=== PATIENT | female | born 1980 | race Two or more races ===

== ENCOUNTER 2017-02-02 10:45 | Emergency (ER) | payer OTHER ==
[2017-02-02 10:52] VITALS: TEMP 98.2; BMI 31.0
--- NOTE | 2017-02-02 10:56 | PDOC ---
History of Present Illness - General History Source: Patient Exam Limitations: No Limitations - History of Present Illness Initial Comments: 02/02/17 11:52 36 year old female who is 6 weeks A1, with no significant past medical history, who presents to the emergency room complaining of 1 week of intermittent vaginal bleeding that worsened today. The patient explains that she visited her OBGYN, Dr. Hayes, in the office when she experienced the bleeding 1 weeks ago. She was told that it may be normal, but if the bleeding worsens to come to the ER. Over the past week, she states that the bleeding stopped and she would only sometimes see blood on the toilet paper. However, today she noticed that there was blood all over her underwear when she was out running errands. Denies clots. Denies abdominal pain. Denies dysuria, hematuria, urinary frequency. Denies fever, chills, nausea, vomiting. Allergies: NKDA OBGYN: Dr. Breonna Hayes <Queta Elmore - Last Filed: 02/02/17 13:05> <Dara Suarez - Last Filed: 02/02/17 14:51> - General Chief Complaint: Vaginal Bleeding Stated Complaint: BLEEDING (6 WKS ) Time Seen by Provider: 02/02/17 10:56 Past History <Queta Elmore - Last Filed: 02/02/17 13:05> - Past Medical History Other medical history: NONE - Reproductive History Dysfunctional Uterine Bleeding: No - Suicide/Smoking/Psychosocial Hx Smoking History: Never smoked Hx Alcohol Use: No Drug/Substance Use Hx: No Substance Use Type: None <Dara Suarez - Last Filed: 02/02/17 14:51> - Past Medical History Allergies/Adverse Reactions: Allergies Allergy/AdvReac Type Severity Reaction Status Date / Time No Known Allergies Allergy Verified 02/02/17 10:52 Home Medications: Ambulatory Orders NK [No Known Home Medication] 03/16/16 Review of Systems - Review of Systems Able to Perform ROS?: Yes Comments:: 02/02/17 11:52 GENERAL/CONSTITUTIONAL: No fever or chills. No weakness. HEAD, EYES, EARS, NOSE AND THROAT: No change in vision. No ear pain or discharge. No sore throat. GASTROINTESTINAL: No nausea, vomiting, diarrhea or constipation. GENITOURINARY: +vaginal bleeding. No dysuria, frequency, or change in urination. CARDIOVASCULAR: No chest pain or shortness of breath. RESPIRATORY: No cough, wheezing, or hemoptysis. MUSCULOSKELETAL: No joint or muscle swelling or pain. No neck or back pain. SKIN: No rash NEUROLOGIC: No headache, vertigo, loss of consciousness, or change in strength/ sensation. ENDOCRINE: No increased thirst. No abnormal weight change. HEMATOLOGIC/LYMPHATIC: No anemia, easy bleeding, or history of blood clots. ALLERGIC/IMMUNOLOGIC: No hives or skin allergy. <Queta Elmore - Last Filed: 02/02/17 13:05> *Physical Exam - Vital Signs Last Vital Signs Temp Pulse Resp BP Pulse Ox 98.2 F 77 20 123/70 100 02/02/17 10:50 02/02/17 10:50 02/02/17 10:50 02/02/17 10:50 02/02/17 10:50 - Physical Exam Comments: 02/02/17 11:52 Constitutional: Awake, alert, oriented. No acute distress. Head: Normocephalic. Atraumatic Eyes: PERRL. EOMI. Conjunctivae are not pale. Cardiovascular: Regular rate. Regular rhythm. S1, S2 regular. Distal pulses are 2+ and symmetric. Abdominal: +suprapubic tenderness to palpation. Soft and non-distended. No rebound, guarding or rigidity. No organomegaly. No palpable masses. Good bowel sounds. Pelvic: No active bleeding. +Mild bilateral adnexal tenderness. +cervical motion tenderness. Cervix is closed. There is some brown tinged discharge. Back: No CVA tenderness. Skin: Skin is warm and dry. No petechiae. No purpura. Neurological: Alert and oriented to person, place, and time. Cranial nerves II -XII are grossly intact. Normal speech. Strength is grossly symmetric. No sensory deficits. <Queta Elmore - Last Filed: 02/02/17 13:05> - Vital Signs Last Vital Signs Temp Pulse Resp BP Pulse Ox 98.2 F 77 20 123/70 100 02/02/17 10:50 02/02/17 10:50 02/02/17 10:50 02/02/17 10:50 02/02/17 10:50 <Dara Suarez - Last Filed: 02/02/17 14:51> ED Treatment Course - LABORATORY CBC & Chemistry Diagram: 02/02/17 11:24 02/02/17 11:24 <Queta Elmore - Last Filed: 02/02/17 13:05> - LABORATORY CBC & Chemistry Diagram: 02/02/17 11:24 02/02/17 11:24 <Dara Suarez - Last Filed: 02/02/17 14:51> Medical Decision Making - Medical Decision Making 02/02/17 11:46 a/p: 36yo female at 6 weeks with vaginal bleeding intermittent x 1 week -pelvic ultrasound -labs -beta -ua -type and screen -poss threatened ab vs bleeding in first trimester vs ectopic given adnexal ttp on exam -gc/chl cultures sent 02/02/17 14:49 discussed all lab and imaging results. Pt stable for d/c to home. 02/02/17 14:50 discussed ultrasound results with the patient. went over beta hcg repeat labs in 48 hours. Discussed no heavy lifting, discussed hemorrhagic cyst and subchorionic hemorrhage. Gave copy of ultrasound report. Recommended pt start taking vitamins. Stable for d/c to home. ANswered all questions. <Dara Suarez - Last Filed: 02/02/17 14:51> *DC/Admit/Observation/Transfer - Attestations Scribe Attestion: 02/02/17 11:52 Documentation prepared by DUNIA Cruz, acting as medical chemist for Dara Suarez DO. <Queta Elmore - Last Filed: 02/02/17 13:05> - Discharge Dispostion Admit: No - Attestations Physician Attestion: 02/02/17 14:49 I, Dr. Dara Suarez DO, attest that this document has been prepared under my direction and personally reviewed by me in its entirety. I further attest, that it accurately reflects all work, treatment, procedures and medical decision -making performed by me. <Dara Suarez - Last Filed: 02/02/17 14:51> Diagnosis at time of Disposition: Threatened , Hemorrhagic cyst of ovary, Subchorionic hematoma in first trimester - Referrals Referrals: Kizzy Dempsey MD [Staff Physician] - - Patient Instructions Printed Discharge Instructions: DI for Threatened , DI for Ovarian Cyst Additional Instructions: Please return to the ED or the clinic for a repeat beta HCG in 48 hours. Please take vitamins. Please return to the ED with any further concerns. Please follow up with the CREDIT SPECIALIST. Please do not put anything in the vagina or lift anything heavy.
[2017-02-02 11:44] LABS: BASOPHIL 0.8 % (0-2.0); MCH 31.5 pg (25.7-33.7); MCHC 33.6 g/dl (32.0-36.0); MEAN CELL VOLUME 93.8 fl (80-96); MEAN PLT VOLUME 7.6 fl (7.5-11.1); NEUTROPHILS 56.4 % (42.8-82.8); PLATELET COUNT 233 K/MM3 (134-434); RDW 13.3 % (11.6-15.6); WHITE BLOOD COUNT 8.9 K/mm3 (4.0-10.0)
[2017-02-02 12:03] LABS: INR 0.96 (0.82-1.09); PROTHROMBIN TIME (PATIENT) 10.9 SEC (9.98-11.88)
[2017-02-02 12:05] LABS: ACTIVATED PTT 31.3 SECONDS (26.9-34.4)
[2017-02-02 12:09] LABS: URINE APPEARANCE CLEAR; URINE BILIRUBIN NEGATIVE (NEGATIVE); URINE BLOOD 1+ (NEGATIVE); URINE COLOR LTYELLOW; URINE GLUCOSE (UA) NEGATIVE (NEGATIVE); URINE KETONE NEGATIVE (NEGATIVE); URINE NITRITE NEGATIVE (NEGATIVE); URINE PROTEIN NEGATIVE (NEGATIVE); URINE UROBILINOGEN NEGATIVE mg/dL (0.2-1.0)
[2017-02-02 12:25] LABS: ALBUMIN 3.6 g/dl (3.4-5.0); ANION GAP 10 (8-16); BILIRUBIN,TOTAL 0.5 mg/dL (0.2-1.0); CALCIUM 8.7 mg/dL (8.5-10.1); CO2 23 mmol/L (21-32); CREATININE 0.6 mg/dL (0.55-1.02); GLUCOSE,RANDOM 83 mg/dL (74-106); SGOT/AST 12 U/L (15-37); SGPT/ALT 22 U/L (12-78); TOT PROT 6.8 g/dl (6.4-8.2)
[2017-02-02 12:27] LABS: ALK PHOS 57 U/L (45-117)
[2017-02-02 12:46] LABS: URINE MUCUS RARE; URINE RBC 2 /hpf (0-3)
[2017-02-02 13:21] VITALS: BP 116/68; PULSE 68
[2017-02-02 17:15] LABS: URINE LEUK ESTERASE Negative (NEGATIVE)
== END 2017-02-02 14:56 | disposition home or self-care (01) ==
LOC: JER 10:45
DX: O26.891 Other specified pregnancy related conditions, first trimester (principal); O20.0 Threatened abortion; Z3A.01 Less than 8 weeks gestation of pregnancy; N83.209 Unspecified ovarian cyst, unspecified side; O71.89 Other specified obstetric trauma
CPT/HCPCS: 36415; 76817-TC; 80053; 81003; 81015; 84702; 85025; 85610; 85730; 86850; 86900; 86901; 87491; 87591; 99283-25

== ENCOUNTER 2017-02-04 07:15 | Emergency (ER) | payer OTHER ==
[2017-02-04 07:36] VITALS: BP 110/69; PULSE 63; TEMP 98.2; BMI 31.0
--- NOTE | 2017-02-04 08:18 | PDOC ---
History of Present Illness - General Chief Complaint: Revisit, Lab Variance Stated Complaint: REVISIT (6 WEEKS ) Time Seen by Provider: 02/04/17 08:17 History Source: Patient Exam Limitations: No Limitations - History of Present Illness Initial Comments: 02/04/17 08:22 My Chief Complaint: here for repeat Beta HCG History of Present Illness: Pt. is a 36 year old female who is 6 weeks 5 days A1, with no significant past medical history, who presents to the emergency room complaining of 1 week of intermittent vaginal bleeding that worsened today on 02/02/17. The patient explains that she visited her OBGYN, Dr. Hayes, in the office when she experienced the bleeding 1 1/2 weeks ago. Over the past week and 2 days, she states that the bleeding stopped and she has on- ly brownish discharge on toilet paper.She has minimal lower mid pelvic to rt. sided discomfort. She denies any fever. Beta HCG 02/02/17 13864.9. Pt.'s LMP was 12/15/16, pt. is followed by Dr. Hayes douper. 02/04/17 08:54 02/04/17 09:02 02/04/17 09:35 Timing/Duration: other (lessening vaginal bleeding ) Severity: mild Associated Symptoms: reports: other (minimal pelvic mid to rt. sided pain ) Past History - Past Medical History Allergies/Adverse Reactions: Allergies Allergy/AdvReac Type Severity Reaction Status Date / Time No Known Allergies Allergy Verified 02/04/17 08:14 Home Medications: Ambulatory Orders NK [No Known Home Medication] 03/16/16 Other medical history: denies - Reproductive History (#): 4 Para: 2 Dysfunctional Uterine Bleeding: No Spontaneous : 1 - Suicide/Smoking/Psychosocial Hx Smoking History: Never smoked Have you smoked in the past 12 months: No Information on smoking cessation initiated: No Hx Alcohol Use: No Drug/Substance Use Hx: No Substance Use Type: None Review of Systems - Review of Systems Able to Perform ROS?: Yes Constitutional: No: Symptoms Reported HEENTM: No: Symptoms Reported Respiratory: No: Symptoms reported Cardiac (ROS): No: Symptoms Reported ABD/GI: Yes: Other (minimal mid pelvic to rt. sided discomfort) : Yes: Other (minimal brownish discharge when wiping only ) Musculoskeletal: No: Symptoms Reported Integumentary: No: Symptoms Reported Neurological: No: Symptoms reported *Physical Exam - Vital Signs Last Vital Signs Temp Pulse Resp BP Pulse Ox 98.2 F 63 16 110/69 100 02/04/17 07:31 02/04/17 07:31 02/04/17 07:31 02/04/17 07:31 02/04/17 07:31 - Physical Exam General Appearance: Yes: Appropriately Dressed Respiratory/Chest: positive: Lungs Clear, Normal Breath Sounds. negative: Chest Tender, Respiratory Distress Cardiovascular: positive: Regular Rhythm, Regular Rate, S1, S2 Gastrointestinal/Abdominal: positive: Normal Bowel Sounds, Soft, Tenderness ( minimal pelvic to rt. sided tenderness). negative: Tender, Organomegaly, Distended, Guarding, Rebound, Hepatomegaly, Spleenomegaly Integumentary: positive: Normal Color Neurologic: positive: Alert, Normal Response, Responsive Medical Decision Making - Medical Decision Making 02/04/17 09:00 Pt. is a 36 year old female who is 6 weeks 5 days A1, with no significant past medical history, who presents to the emergency room complaining of 1 week of intermittent vaginal bleeding that worsened today on . The patient explains that she visited her OBGYN, Dr. Hayes, in the office when she experienced the bleeding 1 1/2 weeks ago. Over the past week and 2 days, she states that the bleeding stopped and she has on- ly brownish discharge on toilet paper.She has minimal lower mid pelvic to rt. sided discomfort. She denies any fever. vaginal bleeding in here for Beta HCG PLAN: beta HCG 02/04/17 09:44 02/04/17 09:45 Laboratory Tests 02/04/17 08:30 Beta HCG, Quant 69003.5 follow up with ESCALATOR SERVICE MECHANIC as soon as possible no lifting or strenuous actigvities no sexual intercourse until cleared by your framer *DC/Admit/Observation/Transfer Diagnosis at time of Disposition: Threatened in early - Discharge Dispostion Disposition: HOME Condition at time of disposition: Stable - Patient Instructions Additional Instructions: No Lifting or strenuous activities or exercise No sexual relations until cleared by ESCALATOR SERVICE MECHANIC to resume activities Follow up with your yard attendant data center solutions architect next week for further evaluation Return to emergency room if vaginal bleeding reoccurs or any other symptoms develop copy your recent lab work from today given to you, to give to your ESCALATOR SERVICE MECHANIC doctor Patient voiced understanding of discharge instructions and all questions were answered
== END 2017-02-04 10:01 | disposition home or self-care (01) ==
LOC: JER 07:15 → JERFT 07:15
DX: O20.0 Threatened abortion (principal); Z3A.01 Less than 8 weeks gestation of pregnancy
CPT/HCPCS: 36415; 84702; 99281-25

== ENCOUNTER 2017-09-27 16:35 | Inpatient (IN) | payer OTHER ==
[2017-09-27] MEDS ORDERED: DEXTROSE 5%-LACTATED RINGERS 1,000 ML IV SCH ×2 (18:15→19:00)
[2017-09-27 18:24] VITALS: BMI 38.7
[2017-09-27] MEDS ORDERED: BUTORPHANOL TARTRATE 1 MG/ML VIAL IVPB ONE (19:00)
[2017-09-27] MEDS ORDERED: PROMETHAZINE HCL 25 MG/1 ML VIAL IVPUSH ONE (19:00)
--- NOTE | 2017-09-27 19:07 | HP ---
Past Medical History - Primary Care Physician PCP:: Carmita Garcia - Admission Chief Complaint: 36 yrs , 40.2 weeks by sono, 40.6/7 weeks by dated admitted due to SROM & Onset LP since 4.30 PM 09/27/17 History of Present Illness: PNC at 2, park care at 2, park care. wt gain 43 lbs panel 02/25/17 : O pos, Rpr nr, Hiv neg, Hbsag ne, Rubella iimmune, Pap gc/ct neg , Sickle neg 06/24/17 1 hr GTt 125, Rpr nr, Quantiferon TNP 08/24/17 h/h9.5/30.2, plt 353, GBS neg, gc/ct neg Pt states she was seen by [facility], she had testing done for DS , it was neg . presently sono from [facility] office not available 02/14/2017 8.1 wks , subchorionic bleeding 09/25/17 sono 39.3 wks BPP 8/8, dave 9.0 cm/cephalic History Source: Patient, Medical Record Limitations to Obtaining History: No Limitations - Past Medical History AUTO BODY STRAIGHTENER: No: Migraine, Seizure Cardiovascular: No: HTN, Murmur Pulmonary: No: Asthma Gastrointestinal: Yes: Constipation Renal/: No: UTI ...: 4 ...Para: 2 ( 12/24/1996 6'5" ([facility]), 1999 6'5' ( [facility]} ) ...Term: 2 ...: 0 ...Spon : 1 (2006 ) ...Induced : 0 ...Multiple Gestation: 0 ...LMP: 12/15/16 ... 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 No: AIDS, HIV, STD's Psych: No: Addictions, Anxiety, Bipolar, Psychosis - Past Surgical History Past Surgical History: Yes: Appendectomy (2008) Hx Myomectomy: No Hx Transabdominal Cerclage: No - Smoking History Smoking history: Never smoked Have you smoked in the past 12 months: No - Alcohol/Substance Use Hx Alcohol Use: No History of Substance Use: reports: None Home Medications - Allergies Allergies/Adverse Reactions: Allergies Allergy/AdvReac Type Severity Reaction Status Date / Time No Known Allergies Allergy Verified 09/27/17 18:02 - Home Medications Home Medications: Ambulatory Orders NK [No Known Home Medication] 03/16/16 Physical Exam - Maternity Vital Signs: Vital Signs Temperature 98.2 F 09/27/17 18:00 Pulse Rate 92 H 09/27/17 18:00 Respiratory Rate 18 09/27/17 18:00 Blood Pressure 114/73 09/27/17 18:00 O2 Sat by Pulse Oximetry (%) Constitutional: Yes: Well Nourished Eyes: Yes: WNL HENT: Yes: WNL Neck: Yes: WNL Cardiovascular: Yes: WNL, Regular Rate and Rhythm Lungs: Clear to auscultation Breast(s): Yes: WNL - Abdominal Exam/OB Fundal Height: 40 Number of Fetuses: Single Presentation: Vertex Contractions: Yes Regularity: Irregular (1-5 min) Intensity: Moderate Monitor Mode: External Heart Rate (range): 150 Heart Rate [facility] Category: I Accelerations: Uniform Decelerations: Variable (mild variable sometimes) - Vaginal Exam/OB Vaginal Bleediing: No Speculum Exam: No Dilatation (cm): 1-2 Effacement (%): 60 Amniotic Membrane Status: Ruptured Nitrazine Test: Positive Amniotic Fluid: Yes: Clear Presentation: Vertex/Position Station: -3 - Physical Exam Musculoskeletal: Yes: WNL Extremities: Yes: WNL. No: Calf Tenderness Edema: Yes (hands & abd wall ) Edema: LLE: 1+, RLE: 1+ Integumentary: Yes: WNL, Incision (appendectomy scar) Deep Tendon Reflex Grade: Normal +2 ...Motor Strength: WNL Psychiatric: Yes: WNL, Alert, Oriented - Labs Lab Results: Laboratory Tests 09/27/17 09/27/17 09/27/17 19:00 19:00 19:00 WBC 14.8 H D Hgb 9.4 L D Hct 30.0 L D MCV 80.1 Plt Count 318 Neutrophils % 74.0 D Lymphocytes % 16.4 D PT with INR 10.50 INR 0.93 PTT (Actin FS) 26.6 Sodium 136 Potassium 4.0 Chloride 105 Carbon Dioxide 22 BUN 5 L Creatinine 0.7 Random Glucose 92 Calcium 8.1 L Problem List - Problems (1) Post term over 40 weeks Code(s): O48.0 - POST-TERM (2) SROM (spontaneous rupture of membranes) Code(s): ZCY9914 - (3) Labor established Code(s): JLN8764 - (4) Obesity (BMI 35.0-39.9 without comorbidity) Code(s): E66.9 - OBESITY, UNSPECIFIED (5) Anemia affecting in third trimester Code(s): O99.013 - ANEMIA COMPLICATING , THIRD TRIMESTER (6) AMA (advanced maternal age) multigravida 35+ Code(s): O09.529 - SUPERVISION OF ELDERLY MULTIGRAVIDA, UNSPECIFIED TRIMESTER Assessment/Plan 36 yrs , 40.2 weeks srom , in labor early , gbs neg Plan , Vaginal delivery trial pitocin augmentation prn stadol + phenrgan prn
[2017-09-27 19:36] LABS: EOS % 0.4 % (0-4.5); HEMOGLOBIN 9.4 GM/dL (10.7-15.3); LYMPH % 16.4 % (8-40); MCH 25.1 pg (25.7-33.7); MCHC 31.4 g/dl (32.0-36.0); MEAN CELL VOLUME 80.1 fl (80-96); MEAN PLT VOLUME 8.8 fl (7.5-11.1); MONO % 8.2 % (3.8-10.2); PLATELET COUNT 318 K/MM3 (134-434); RBC 3.75 M/mm3 (3.60-5.2); RDW 17.7 % (11.6-15.6); WHITE BLOOD COUNT 14.8 K/mm3 (4.0-10.0)
[2017-09-27 19:51] LABS: INR 0.93 (0.82-1.09); PROTHROMBIN TIME (PATIENT) 10.5 SEC (9.7-13.0)
[2017-09-27 19:54] LABS: ACTIVATED PTT 26.6 SECONDS (25.2-36.5)
[2017-09-27 20:26] LABS: ANION GAP 9 (8-16); BLOOD UREA NITROGEN 5 mg/dL (7-18); CALCIUM 8.1 mg/dL (8.5-10.1); CHLORIDE 105 mmol/L (98-107); CO2 22 mmol/L (21-32); CREATININE 0.7 mg/dL (0.55-1.02); GLUCOSE,RANDOM 92 mg/dL (74-106); SODIUM 136 mmol/L (136-145)
[2017-09-27] MEDS ORDERED: PROMETHAZINE HCL 25 MG/1 ML VIAL ONE (21:35)
[2017-09-27] MEDS ORDERED: BUTORPHANOL TARTRATE 1 MG/ML VIAL ONE ×2 (21:35)
[2017-09-27] MEDS ORDERED: OXYTOCIN 30 UNITS in 0.9% NS 30 UNIT/500 ML INFUS.BAG IVPB ONE (22:54)
[2017-09-27] MEDS ORDERED: OXYTOCIN 20 UNITS in 0.9% NS 20 UNIT/1,000 ML INFUS.BAG IV ONE (22:54)
--- NOTE | 2017-09-27 23:10 | PN ---
Progress Note, Labor Vaginal Exam #1 Labor Exam Date: 09/27/17 Labor Exam Time: 22:45 Heart Rate (range): 150 Dilatation: 6 Effacement (%): 90 Amniotic Membrane Status: Ruptured Presentation: Vertex/Position Station: -1 Remarks: fhr cat-1 low btb variablity due to stadol + phenrgan uc 2-4 min dysfunctional , mild stadol + phenrgan given at 21.45 [address] augmentation [address] trial of labor Selected Entries 09/27/17 23:00 Temperature 98.9 F Pulse Rate 84 Blood Pressure 135/74 Vaginal Exam #2 Labor Exam Date: 09/28/17 Labor Exam Time: 00:30 Heart Rate (range): 150 Dilatation: 9 Effacement (%): 100 Amniotic Membrane Status: Ruptured Presentation: Vertex/Position Station: +1 (caput to 2+) Remarks: fhr cat-1 uc 2-3 min Selected Entries 09/28/17 00:00 Temperature 98.7 F Pulse Rate 97 H Blood Pressure 134/53 Vaginal Exam #3 Labor Exam Date: 09/28/17 Labor Exam Time: 01:15 Heart Rate (range): 155 Dilatation: 10 cm Effacement (%): 100 Amniotic Membrane Status: Ruptured Station: +2 (caput large) Remarks: fhr cat-1 uc q 2min pit stopped at 1.30 am pt encouraged to push , fhr down to 120-110 during pushing Selected Entries 09/28/17 01:07 Temperature 98.9 F Pulse Rate 100 H Blood Pressure 128/66
[2017-09-27] MEDS ORDERED: OXYTOCIN 30 UNITS in 0.9% NS 30 UNIT/500 ML INFUS.BAG IVPB SCH (23:45)
[2017-09-28] MEDS: OXYTOCIN 20 UNITS in 0.9% NS 20 UNIT/1,000 ML INFUS.BAG IV SCH (02:10)
[2017-09-28] MEDS ORDERED: METHYLERGONOVINE MALEATE 0.2 MG/1 ML AMP IM PRN (02:14)
[2017-09-28] MEDS ORDERED: CARBOPROST TROMETHAMINE 250 MCG/ML AMPUL IM ONE (02:25)
[2017-09-28] MEDS ORDERED: ceFAZolin 2 GRAM PREMIX BAG IVPB ONE (02:26)
[2017-09-28] MEDS ORDERED: ceFAZolin SODIUM 1 GM VIAL ONE (02:31)
[2017-09-28] MEDS ORDERED: ACETAMINOPHEN INJECTION 100 ML IVPB ONE (02:35)
[2017-09-28 02:39] LABS: VENOUS PC02 45.1 mmHg (38-52); VENOUS PO2 35.3 mmHg (28-48)
[2017-09-28 02:41] LABS: VENOUS PH 7.13 (7.32-7.42)
[2017-09-28 02:42] LABS: ARTERIAL BLD GAS O2 SATURATION 32.5 % (90-98.9); ARTERIAL BLOOD GAS BASE EXCESS -17.5 meq/l (-2-2); ARTERIAL BLOOD GAS PCO2 60.3 mmHg (35-45); ARTERIAL BLOOD GAS PO2 24.9 mmHg (80-100); ARTERIAL BLOOD GAS pH 7.03 (7.35-7.45)
[2017-09-28] MEDS ORDERED: BENZOCAINE 28 GM HEMORRHOIDAL OINTMENT TP PRN (02:59)
[2017-09-28] MEDS ORDERED: BISACODYL 10 MG SUPP.RECT RC PRN (02:59)
[2017-09-28] MEDS ORDERED: BENZOCAINE 20% 57 GM BOTTLE TP PRN (02:59)
[2017-09-28] MEDS ORDERED: oxyCODONE HCL 5 MG TABLET PO PRN (02:59)
[2017-09-28] MEDS ORDERED: WITCH HAZEL 50% (TUCKS) 40 PAD/JAR PAD TP PRN (02:59)
[2017-09-28] MEDS ORDERED: ACETAMINOPHEN 1000 MG/100 ML VIAL (NON FORMULARY) IVPB ONE (03:00)
--- NOTE | 2017-09-28 03:18 | PN ---
Delivery - Delivery Vaginal Delivery: No Problems, Spontaneous (baby delievered vx presentation, minerva position, , girl, immediate oral & nasal suction done at perineum before the delivery of shoulder , delivery of body followed by moderate to thick meconium fluid large amount . perineum 1 st degree laceration sutured with Chr catgut #2/0 under local anesthesia . Placenta delievery accompanoed by large amount of bleeding.Atonic uterus wwas noted Bimanual massage given, IV pitocin continued, IM Methergine given at 2.14 AM.Bladder catheterized 50 ml urine IM Hemabate given at 2.25 AM , Anthony catheter inserted at 2.26 AM . Prophylactic 2 gm iVPB Ancef given at 2.35 AM. 3.00AM IVPB Tylenol 1 gm given . periodic, evacuation of blood clots from uterus done , bimanual massage continued until uterus remained firm) Type of Anesthesia: Local Episiotomy/Laceration: Perineal Extension/lac, 1st degree EBL (cc): 700 Delivery, Single - Stages of Labor Date 1st Stage Initiatied: 09/27/17 Time 1st Stage Initiated: 16:30 Date 2nd Stage Initiated: 09/28/17 Time 2nd Stage Initiated: 01:15 Date of Delivery: 09/28/17 Time of Delivery: 02:04 Time Placenta Delivered: 02:10 Placenta: Yes: Spontaneous, Uterine Exploration - Condition of Direct Care Specialist/Net Web Application Developer Present: No Infant Gender: Female Weight: 8 lb 4 oz Position: Left, OA Total Hours ROM (Hrs/Mins): 8h 40m - 1 Minute Total Score: 8 5 Minutes Total Score: 8 - [place] Feeding Plan Initial Plan: Elected not to breastfeed exclusively throughout hospitalization Remarks - Remarks Remarks: 36 yrs ( AMA) , , 40.2 weeks , gbs neg, admitted in labor, srom pnc at [address] [place] [address] Iv stadol 2 mg + phenrgan 25 mg iv given once for labor analgesia . cord PH results notified to nursery to inform mixer wet pour 300 AM BP 123/56, , pulse 93 ut firm , bleeding mild to moderate now
[2017-09-28] MEDS ORDERED: OXYTOCIN 20 UNITS in 0.9% NS 20 UNIT/1,000 ML INFUS.BAG IV ONE (04:15)
[2017-09-28] MEDS: ACETAMINOPHEN 325 MG TABLET (FP) PO PRN ×3 (07:44→21:05)
[2017-09-28] MEDS: FERROUS SO4 325 MG TABLET (FP) PO SCH ×2 (07:44→16:31)
[2017-09-28 08:28] LABS: BASO % 0.1 % (0-2.0); HEMATOCRIT 21.9 % (32.4-45.2); LYMPH % 7.3 % (8-40); MCH 24.6 pg (25.7-33.7); MEAN CELL VOLUME 79.4 fl (80-96); MEAN PLT VOLUME 8.8 fl (7.5-11.1); MONO % 6.1 % (3.8-10.2); NEUT % 86.5 % (42.8-82.8); PLATELET COUNT 248 K/MM3 (134-434); RBC 2.76 M/mm3 (3.60-5.2); RDW 17.5 % (11.6-15.6); WHITE BLOOD COUNT 26.1 K/mm3 (4.0-10.0)
--- NOTE | 2017-09-28 08:31 | PN ---
Progress Note (short form) - Note Progress Note: ppd #0 pt does not c/o excessive bleeding c/o cramps c/o fatigue . Not OOB yet does not c/o dizziness now ryder in situ draining , urine out put 200 ml + in ryder bag, concentrated ut firm below umblicus vag bleeding moderate perineum intact s/p 1st degree laceration Selected Entries 09/28/17 04:30 Temperature 98.7 F Pulse Rate 81 Blood Pressure 109/49 Blood Pressure 69 Mean Imp s/p Atonic PPH stable today AM cbc pending Laboratory Tests 09/28/17 07:40 WBC 26.1 H D RBC 2.76 L D Hgb 6.8 L* D Hct 21.9 L D MCV 79.4 L MCH 24.6 L MCHC 31.0 L RDW 17.5 H Plt Count 248 D MPV 8.8 Absolute Neuts (auto) 22.5 Neutrophils % 86.5 H Lymphocytes % 7.3 L D 10.00 AM I discussed the low count with patient she is informed r/b/a ,not ltd to reaction, chills etc , alt if transfusion not taken dizziness, blackouts, fainting spells ,sob, headache etc symptoms may be experienced, she will have to take po Ialong with high iron & high protein diet facundo & Pnv sincerely Problem List - Problems (1) Post term over 40 weeks Code(s): O48.0 - POST-TERM (2) SROM (spontaneous rupture of membranes) Code(s): JFV1770 - (3) Labor established Code(s): DQQ1044 - (4) Obesity (BMI 35.0-39.9 without comorbidity) Code(s): E66.9 - OBESITY, UNSPECIFIED (5) Anemia affecting in third trimester Code(s): O99.013 - ANEMIA COMPLICATING , THIRD TRIMESTER (6) AMA (advanced maternal age) multigravida 35+ Code(s): O09.529 - SUPERVISION OF ELDERLY MULTIGRAVIDA, UNSPECIFIED TRIMESTER
[2017-09-28 08:32] LABS: HEMOGLOBIN 6.8 GM/dL (10.7-15.3)
[2017-09-28] MEDS: PRENATAL VITAMINS W/ FOLIC ACID TABLET (FP) PO SCH (09:52)
[2017-09-28] MEDS ORDERED: DIPHTH,PERTUSS(ACELL),TET 0.5 ML DISP.SYRIN IM ONE (10:00)
[2017-09-28 14:10] LABS: ANISOCYTOSIS 1+; PLATELET ESTIMATE ADEQUATE
[2017-09-28] MEDS: IBUPROFEN 600 MG TABLET (FP) PO PRN ×2 (16:32→21:05)
[2017-09-29] MEDS: FERROUS SO4 325 MG TABLET (FP) PO SCH ×2 (07:23→18:18)
[2017-09-29] MEDS: ACETAMINOPHEN 325 MG TABLET (FP) PO PRN (07:23)
[2017-09-29] MEDS: IBUPROFEN 600 MG TABLET (FP) PO PRN (07:24)
[2017-09-29 08:48] LABS: HEMATOCRIT 25.1 % (32.4-45.2); HEMOGLOBIN 8.2 GM/dL (10.7-15.3); MCH 26.8 pg (25.7-33.7); MCHC 32.6 g/dl (32.0-36.0); MEAN CELL VOLUME 82.3 fl (80-96); RBC 3.05 M/mm3 (3.60-5.2); RDW 17.2 % (11.6-15.6); WHITE BLOOD COUNT 16.6 K/mm3 (4.0-10.0)
[2017-09-29 08:49] LABS: BASO % 0.3 % (0-2.0); LYMPH % 19.7 % (8-40); MEAN PLT VOLUME 8.5 fl (7.5-11.1); MONO % 6.1 % (3.8-10.2); NEUT % 72.9 % (42.8-82.8); PLATELET COUNT 220 K/MM3 (134-434)
[2017-09-29] MEDS: PRENATAL VITAMINS W/ FOLIC ACID TABLET (FP) PO SCH (10:11)
--- NOTE | 2017-09-29 11:43 | PN ---
Post Progress Note - Subjective Subjective: 36 yo Para 3 status post vaginal delivery, seen and evaluated. Doing well after blood transfusion. Post Day: 1 Type of Delivery: Vital Signs: Vital Signs Temperature 97.7 F 09/29/17 09:15 Pulse Rate 70 09/29/17 09:15 Respiratory Rate 20 09/29/17 09:15 Blood Pressure 115/64 09/29/17 09:15 O2 Sat by Pulse Oximetry (%) 97 09/28/17 04:00 Breast Exam: Yes: Soft Uterus: Yes: Fundus Firm Abdomen/GI: Yes: Abdomen soft, Tolerating PO Lochia: Yes: Rubra Lochia, amount: Moderate Extremities: Yes: Calves non-tender Activity: Ambulating - Labs Labs: CBC WBC 16.6 K/mm3 (4.0-10.0) H D 09/29/17 08:00 RBC 3.05 M/mm3 (3.60-5.2) L 09/29/17 08:00 Hgb 8.2 GM/dL (10.7-15.3) L D 09/29/17 08:00 Hct 25.1 % (32.4-45.2) L 09/29/17 08:00 MCV 82.3 fl (80-96) 09/29/17 08:00 MCH 26.8 pg (25.7-33.7) 09/29/17 08:00 MCHC 32.6 g/dl (32.0-36.0) 09/29/17 08:00 RDW 17.2 % (11.6-15.6) H 09/29/17 08:00 Plt Count 220 K/MM3 (134-434) 09/29/17 08:00 MPV 8.5 fl (7.5-11.1) 09/29/17 08:00 Absolute Neuts (auto) 12.1 # 09/29/17 08:00 Neutrophils % 72.9 % (42.8-82.8) 09/29/17 08:00 Neutrophils % (Manual) 82.0 % (42.8-82.8) 09/28/17 07:40 Band Neutrophils % 8.0 % 09/28/17 07:40 Lymphocytes % 19.7 % (8-40) D 09/29/17 08:00 Lymphocytes % (Manual) 7.0 % (8-40) L 09/28/17 07:40 Monocytes % 6.1 % (3.8-10.2) 09/29/17 08:00 Monocytes % (Manual) 3 % (3.8-10.2) L 09/28/17 07:40 Eosinophils % 1.0 % (0-4.5) D 09/29/17 08:00 Basophils % 0.3 % (0-2.0) 09/29/17 08:00 Nucleated RBC % 0 % (0-0) 09/29/17 08:00 Differential Comment Man diff performed 09/28/17 07:40 Platelet Estimate Adequate 09/28/17 07:40 Platelet Comment 09/28/17 07:40 Anisocytosis 1+ 09/28/17 07:40 Microcytosis 2+ 09/28/17 07:40 Assessment/Plan Status post Stable Continue routine care Chest x-ray
[2017-09-29] MEDS ORDERED: SENNOSIDES/DOCUSATE COMBO (SENNA PLUS) TABLET (UD) PO PRN (22:00)
--- NOTE | 2017-09-30 06:48 | PN ---
Progress Note (short form) - Note Progress Note: ppd 2, doing well, no c/o ,voids ok, no dizziness, no excess vaginal bleeding Last Vital Signs Temp Pulse Resp BP Pulse Ox 98.0 F 74 20 116/61 97 09/29/17 22:00 09/29/17 22:00 09/29/17 22:00 09/29/17 22:00 09/28/17 04:00 CBC, BMP 09/29/17 08:00 09/27/17 19:00 abdomen soft, non tender , no cva uterus firm, non tender lochia mild , no calf tenderness plan d/c home, iron, vit
[2017-09-30] MEDS: IBUPROFEN 600 MG TABLET (FP) PO PRN ×2 (07:21→16:57)
[2017-09-30] MEDS: FERROUS SO4 325 MG TABLET (FP) PO SCH ×2 (07:21→16:57)
[2017-09-30] MEDS: ACETAMINOPHEN 325 MG TABLET (FP) PO PRN (07:21)
[2017-09-30 08:03] VITALS: BP 115/62; PULSE 66; TEMP 98.4
[2017-09-30] MEDS: OXYTOCIN 20 UNITS in 0.9% NS 20 UNIT/1,000 ML INFUS.BAG IV SCH (08:33)
[2017-09-30] MEDS: PRENATAL VITAMINS W/ FOLIC ACID TABLET (FP) PO SCH (10:52)
--- NOTE | 2017-10-03 15:52 | DS ---
Physical Exam-TUB [facility]UCKER Vital Signs: Vital Signs Temperature 98.4 F 09/30/17 08:02 Pulse Rate 66 09/30/17 08:02 Respiratory Rate 20 09/30/17 08:02 Blood Pressure 115/62 09/30/17 08:02 O2 Sat by Pulse Oximetry (%) 97 09/28/17 04:00 Constitutional: Yes: Obese, Pallor, Other (no c/o dizziness. feel better after receiving transfusuinsx 2pack cell units) Eyes: Yes: WNL HENT: Yes: WNL Neck: Yes: WNL Cardiovascular: Yes: WNL Respiratory: Yes: WNL Gastrointestinal: Yes: WNL ...Rectal Exam: Yes: WNL Renal/: Yes: WNL ....Post : Yes: Uterus firm, Uterus non-tender, Moderate lochia rubra ( perineum intact, 1st degree laceration healing) Breast(s): Yes: WNL (, breast not engorged) Musculoskeletal: Yes: WNL Extremities: Yes: WNL Edema: Yes Edema: LLE: 1+, RLE: 1+ Integumentary: Yes: WNL Neurological: Yes: WNL ...Motor Strength: WNL Psychiatric: Yes: WNL Labs: CBC, BMP 09/29/17 08:00 09/27/17 19:00 Laboratory Tests 09/27/17 09/28/17 19:00 07:40 WBC 14.8 H D 26.1 H D Hgb 9.4 L D 6.8 L* D Hct 30.0 L D 21.9 L D Plt Count 248 D Delivery - Delivery Vaginal Delivery: No Problems, Spontaneous (baby delievered vx presentation, minerva position, , girl, immediate oral & nasal suction done at perineum before the delivery of shoulder , delivery of body followed by moderate to thick meconium fluid large amount . perineum 1 st degree laceration sutured with Chr catgut #2/0 under local anesthesia . Placenta delievery accompanoed by large amount of bleeding.Atonic uterus wwas noted Bimanual massage given, IV pitocin continued, IM Methergine given at 2.14 AM.Bladder catheterized 50 ml urine IM Hemabate given at 2.25 AM , Anthony catheter inserted at 2.26 AM . Prophylactic 2 gm iVPB Ancef given at 2.35 AM. 3.00AM IVPB Tylenol 1 gm given . periodic, evacuation of blood clots from uterus done , bimanual massage continued until uterus remained firm) Type of Anesthesia: Local Episiotomy/Laceration: Perineal Extension/lac, 1st degree EBL (cc): 700 Delivery, Single - Stages of Labor Date 1st Stage Initiatied: 09/27/17 Time 1st Stage Initiated: 16:30 Date 2nd Stage Initiated: 09/28/17 Time 2nd Stage Initiated: 01:15 Date of Delivery: 09/28/17 Time of Delivery: 02:04 Time Placenta Delivered: 02:10 Placenta: Yes: Spontaneous, Uterine Exploration - Condition of Probate Judge/Long Term Care Administrator Present: No Infant Gender: Female Weight: 8 lb 4 oz Position: Left, OA Total Hours ROM (Hrs/Mins): 8h 40m - 1 Minute Total Score: 8 5 Minutes Total Score: 8 - Feeding Plan Initial Plan: Elected not to breastfeed exclusively throughout hospitalization Remarks - Remarks Remarks: 36 yrs ( AMA) , , 40.2 weeks , gbs neg, admitted in labor, srom pnc at [address] [place] [address] Iv stadol 2 mg + phenrgan 25 mg iv given once for labor analgesia . cord PH results notified to nursery to inform home care aide 3.00 AM BP 123/56, , pulse 93 ut firm , bleeding mild to moderate now pp 2 units of pack cells given . pt doing well post transfusion discharged 09/30/17 anemia counselled Discharge Summary Reason For Visit: LABOR Condition: Stable - Instructions Diet, Activity, Other Instructions: Post Instructions DIET: Continue good diet high in protein, calcium, and iron rich foods. Drink at least eight (8) glasses of water daily in addition to other fluids. ___ Regular diet MEDICATIONS: Continue vitamins and iron as previously directed. Motrin and Tylenol may be taken for minor discomfort. ACTIVITY: Mild to moderate exercise may be started in two (2) weeks. Take frequent rest periods. Resume normal activity after six (6) week check up. WOUND CARE OF OPERATIVE SITE: Continue use of perineal bottle until vaginal discharge stops. Keep area clean. Shower daily. Keep abdominal wound dry. Report any drainage or redness to physician. Tub baths, tampons and douches are not permitted for [address] Breast feeding & or Bottle feeding BREAST CARE: (For those that are not breast feeding): If engorgement occurs: Wear tight fitting bra. Take Tylenol or Motrin for pain. Apply cold packs (ice in bags to each breast ) FAMILY PLANNING: There are many control alternatives to pursue and they should be discussed at your first office visit. You may resume sexual activity after your six (6) week check up. (Remember, breast feeding is not a contraceptive) NEXT PHYSICIAN APPOINTMENT: Be certain to call for a four (4) week appointment, unless otherwise directed. Repeat CBC in the clinic Call Clinic or got to Emergency Dept if you have any of the following: Heavy vaginal bleeding Painful urination Leg pain Unusual odor noted to vaginal bleeding High fever Red streaking noted on breast Referrals: Carmita Garcia MD [Staff Physician] - Disposition: HOME - Home Medications Comprehensive Discharge Medication List: Ambulatory Orders Acetaminophen [Tylenol .Regular Strength -] 650 mg PO Q3H PRN tablet 09/29/17 Ferrous Sulfate [Feosol] 325 mg PO BIDWM #60 tab 09/29/17 Ibuprofen [Motrin -] 200 mg PO Q4H PRN tablet 09/29/17 Vitamins (Sjr) - 1 tab PO DAILY #30 tablet 09/29/17 Sennosides/Docusate Sodium [Pericolace -] 2 tablet PO HS PRN #60 tablet
== END 2017-09-30 19:00 | disposition home or self-care (01) | DRG 560 ==
LOC: JLDR 16:35 → J3W 09-28 04:24
PROVIDERS: ADMIT Obstetrics & Gynecology; ATTEND Obstetrics & Gynecology
PROC: 0HQ9XZZ Repair Perineum Skin, External Approach (ICD-10-PCS; principal; 2017-09-28)
PROC: 10E0XZZ Delivery of Products of Conception, External Approach (ICD-10-PCS; 2017-09-28)
PROC: 30233N1 Transfusion of Nonautologous Red Blood Cells into Peripheral Vein, Percutaneous Approach (ICD-10-PCS; 2017-09-28)
DX: O48.0 Post-term pregnancy (principal); O99.02 Anemia complicating childbirth; D64.89 Other specified anemias; O70.0 First degree perineal laceration during delivery; O99.214 Obesity complicating childbirth; E66.8 Other obesity; Z68.38 Body mass index [BMI] 38.0-38.9, adult; Z37.0 Single live birth; Z3A.40 40 weeks gestation of pregnancy
CPT/HCPCS: 36415; 36430; 36600; 59409; 71045-TC-FY; 80048; 82803; 85025; 85610; 85730; 86593; 86850; 86900; 86901; 86922; 90715; J0131; P9038; P9058

== ENCOUNTER 2022-07-16 09:03 | Emergency (ER) | payer OTHER ==
[2022-07-16 09:07] VITALS: BP 147/61; PULSE 83; RESP 18; TEMP 98.1; BMI 28.3
[2022-07-16 11:17] LABS: HCG,QUALITATIVE URINE Negative
[2022-07-16] MEDS ORDERED: DEXAMETHASONE SOD PHOSPHATE 10 MG/1 ML VIAL IM ONE (11:18)
[2022-07-16] MEDS ORDERED: KETOROLAC TROMETHAMINE 30 MG/1 ML VIAL IM ONE (11:18)
[2022-07-16 11:23] LABS: EPI CELLS 19 /uL (0-25.1); HYALINE CASTS 0 /uL (0-3.1); PH,URINE 6.5 (5.0-8.0); URINE APPEARANCE CLEAR; URINE BACTERIA 1221 /uL (0-1359); URINE BILIRUBIN NEGATIVE (NEGATIVE); URINE COLOR YELLOW; URINE GLUCOSE (UA) NEGATIVE (NEGATIVE); URINE KETONE NEGATIVE (NEGATIVE); URINE LEUK ESTERASE NEGATIVE (NEGATIVE); URINE NITRITE NEGATIVE (NEGATIVE); URINE PROTEIN NEGATIVE (NEGATIVE); URINE RBC 107 /uL (0-23.9); URINE UROBILINOGEN 0.2 mg/dL (0.2-1.0); URINE WBC 6 /uL (0-25.8)
[2022-07-16] MEDS ORDERED: DEXAMETHASONE SOD PHOSPHATE 10 MG/1 ML VIAL ONE (11:24)
[2022-07-16] MEDS ORDERED: KETOROLAC TROMETHAMINE 30 MG/1 ML VIAL ONE (11:24)
== END 2022-07-16 14:51 | disposition home or self-care (01) ==
LOC: JERFT 09:03 → JER 09:03 → JERFT 14:51
PROC: 3E023GC Introduction of Other Therapeutic Substance into Muscle, Percutaneous Approach (ICD-10-PCS; principal; 2022-07-16)
DX: M54.42 Lumbago with sciatica, left side (principal)
CPT/HCPCS: 72131-TC; 81003; 84703; 87086; 99284-25; J1100